=== PATIENT | female | born 1960 | race Caucasian/White ===

== ENCOUNTER 2017-02-11 13:22 | Emergency (ER) | payer MEDICARE ==
[2017-02-11 14:01] LABS: Basophils % (Auto) 0.2 % (0.0-1.8); Eosinophils % (Auto) 0.2 % (0.0-4.3); Hematocrit 39.8 % (30.3-42.9); Hemoglobin 12.8 gm/dl (10.1-14.3); Mean Corpuscular HGB Conc 32 % (30-34); Mean Corpuscular Hemoglobin 30 pg (28-32); Mean Corpuscular Volume 92 fl (79-97); Platelet Count 235 K/mm3 (140-440); Red Blood Count 4.31 M/mm3 (3.65-5.03); Red Cell Distribution Width 15.2 % (13.2-15.2); White Blood Count 11.2 K/mm3 (4.5-11.0)
[2017-02-11 14:31] LABS: Alanine Aminotransferase 14 units/L (7-56); Albumin/Globulin Ratio 1.4 %; Alkaline Phosphatase 68 units/L (35-129); Anion Gap 16 mmol/L; BUN/Creatinine Ratio 36.66; Bilirubin,Total 0.2 mg/dL (0.1-1.2); Blood Urea Nitrogen 22 mg/dL (7-17); Calcium 9.5 mg/dL (8.4-10.2); Carbon Dioxide 28 mmol/L (22-30); Glucose 116 mg/dL (65-100); Potassium 4.3 mmol/L (3.6-5.0); Sodium 142 mmol/L (137-145); Total Protein 6.9 g/dL (6.3-8.2)
[2017-02-11] MEDS ORDERED: MORPHINE IV ONE (15:45)
[2017-02-11] MEDS ORDERED: ZOFRAN IV ONE (15:45)
[2017-02-11] MEDS ORDERED: NACL 0.9% 1000 ML 1,000 ML IV ONE (15:45)
[2017-02-11] MEDS ORDERED: NACL ONE (15:52)
--- NOTE | 2017-02-11 15:53 | Emergency Department Report ---
HPI - General Chief Complaint: Nausea/Vomiting/Diarrhea Time Seen by Provider: 02/11/17 15:32 - HPI HPI: Room 26 The patient is a 56-year-old female presenting with a chief complaint of nausea vomiting and diarrhea. Patient is currently at [facility] for suicidal ideation but was sent to the emergency department after becoming diaphoretic and exhibiting nausea vomiting and diarrhea. The patient denies abdominal pain but points to her left lower quadrant states there is pain. Patient states they began to feel sick and felt hot became diaphoretic and started vomiting. Patient states he then had 2 episodes of loose stools. When asked how she is feeling currently a patient replies she feels "all right." Location: [see above] Duration: [see above] Quality: Nausea Severity: Moderate Modifying factors: [see above] Context: [see above] Mode of transportation: [not driving] ED Past Medical Hx - Past Medical History Previous Medical History?: Yes Hx GERD: Yes Hx of Cancer: Yes (breast. s/p lumpectomy and xrt) Hx Psychiatric Treatment: Yes (bipolar, SI without plan) - Surgical History Additional Surgical History: partial colectomy secondary to diverticulitis 2010 - Family History Family history: no significant - Social History Smoking Status: Current Every Day Smoker (1/2 pack per day) Substance Use Type: Alcohol - Medications Home Medications: Home Medications Medication Instructions Recorded Confirmed Last Taken Type Baclofen 20 mg PO QID 02/11/17 02/11/17 02/10/17 History Dextroamphetamine/Amphetamine 30 mg PO BID 02/11/17 02/11/17 02/10/17 History [Adderall] Effexor Xr 150 mg PO DAILY 02/11/17 02/11/17 02/10/17 History Gabapentin [Neurontin] 300 mg PO TID 02/11/17 02/11/17 02/10/17 History Ibuprofen [Motrin 600 MG tab] 600 mg PO Q6HR PRN MDD 4 02/11/17 02/11/17 History LORazepam [Ativan] 0.5 mg PO Q6HR PRN MDD 4 02/11/17 02/11/17 Unknown History Ondansetron [Zofran TAB] 8 mg PO Q8HR PRN #20 tablet 02/11/17 Unknown Rx Quetiapine Fumarate [SEROquel] 50 mg PO HS 02/11/17 02/11/17 02/10/17 History Suboxone 2 mg-0.5 mg Sl Film 2 mg SL Q6HR PRN MDD 4 02/11/17 02/11/17 02/10/17 History traZODone [Desyrel] 50 mg PO HS 02/11/17 02/11/17 02/10/17 History ED Review of Systems ROS: Stated complaint: N/V Other details as noted in HPI Comment: All other systems reviewed and negative Constitutional: diaphoresis. denies: chills, fever Eyes: denies: eye pain, eye discharge, vision change ENT: denies: ear pain, throat pain Respiratory: denies: cough, shortness of breath, wheezing Cardiovascular: denies: chest pain, palpitations Endocrine: no symptoms reported Gastrointestinal: abdominal pain, nausea, vomiting, diarrhea Genitourinary: denies: urgency, dysuria, discharge Musculoskeletal: denies: back pain, joint swelling, arthralgia Skin: denies: rash, lesions Neurological: denies: headache, weakness, paresthesias Psychiatric: denies: anxiety, depression Hematological/Lymphatic: denies: easy bleeding, easy bruising Physical Exam - Physical Exam Vital Signs: Vital Signs 02/11/17 02/11/17 13:47 13:48 Temperature 97.9 F Pulse Rate 92 H Respiratory 18 17 Rate Blood Pressure 108/73 [Right] O2 Sat by Pulse 93 Oximetry Physical Exam: GENERAL: The patient is well-developed well-nourished female lying on stretcher not appearing to be in acute distress. [] HEENT: Normocephalic. Atraumatic. Extraocular motions are intact. Patient has moist mucous membranes. NECK: Supple. Trachea midline CHEST/LUNGS: Clear to auscultation. There is no respiratory distress noted. HEART/CARDIOVASCULAR: Regular. There is tachycardia. There is no gallop rub or murmur. ABDOMEN: Abdomen is soft, nontender but the patient complains of pain in the left lower quadrant. Patient has normal bowel sounds. There is no abdominal distention. SKIN: There is no rash. There is no edema. There is no diaphoresis. NEURO: The patient is awake, alert, and oriented. The patient is cooperative. The patient has normal speech MUSCULOSKELETAL: There is no evidence of acute injury. ED Course Vital Signs 02/11/17 02/11/17 13:47 13:48 Temperature 97.9 F Pulse Rate 92 H Respiratory 18 17 Rate Blood Pressure 108/73 [Right] O2 Sat by Pulse 93 Oximetry ED Medical Decision Making - Lab Data Result diagrams: 02/11/17 13:44 02/11/17 13:44 Laboratory Tests 02/11/17 02/11/17 02/11/17 13:44 13:44 15:48 WBC 11.2 H RBC 4.31 Hgb 12.8 Hct 39.8 MCV 92 MCH 30 MCHC 32 RDW 15.2 Plt Count 235 Lymph % (Auto) 5.2 L [place] % (Auto) 6.1 Eos % (Auto) 0.2 Baso % (Auto) 0.2 Lymph # 0.6 L [place] # 0.7 Eos # 0.0 Baso # 0.0 Seg Neutrophils % 88.3 H Seg Neutrophils # 9.8 H Sodium 142 Potassium 4.3 Chloride 102.0 Carbon Dioxide 28 Anion Gap 16 BUN 22 H Creatinine 0.6 L Estimated GFR > 60 BUN/Creatinine Ratio 36.66 Glucose 116 H Calcium 9.5 Total Bilirubin 0.2 AST 27 ALT 14 Alkaline Phosphatase 68 Total Creatine Kinase 421 H CK-MB (CK-2) 5.9 H CK-MB (CK-2) Rel Index 1.4 Troponin T Total Protein 6.9 Albumin 4.0 Albumin/Globulin Ratio 1.4 Amylase 27 Lipase Urine Color Urine Turbidity Urine pH Ur Specific [place] Urine Protein Urine Glucose (UA) Urine Ketones Urine Blood Urine Nitrite Urine Bilirubin Urine Urobilinogen Ur Leukocyte Esterase Urine WBC (Auto) Urine RBC (Auto) U Epithel Cells (Auto) Urine Mucus 02/11/17 02/11/17 15:49 17:38 WBC RBC Hgb Hct MCV MCH MCHC RDW Plt Count Lymph % (Auto) [place] % (Auto) Eos % (Auto) Baso % (Auto) Lymph # [place] # Eos # Baso # Seg Neutrophils % Seg Neutrophils # Sodium Potassium Chloride Carbon Dioxide Anion Gap BUN Creatinine Estimated GFR BUN/Creatinine Ratio Glucose Calcium Total Bilirubin AST ALT Alkaline Phosphatase Total Creatine Kinase CK-MB (CK-2) CK-MB (CK-2) Rel Index Troponin T < 0.010 Total Protein Albumin Albumin/Globulin Ratio Amylase Lipase 29 Urine Color Yellow Urine Turbidity Clear Urine pH 5.0 Ur Specific [place] 1.041 H Urine Protein 100 mg/dl Urine Glucose (UA) Neg Urine Ketones Neg Urine Blood Neg Urine Nitrite Neg Urine Bilirubin Neg Urine Urobilinogen < 2.0 Ur Leukocyte Esterase Neg Urine WBC (Auto) 1.0 Urine RBC (Auto) 5.0 U Epithel Cells (Auto) < 1.0 Urine Mucus Few - EKG Data -: EKG Interpreted by Me EKG shows normal: sinus rhythm Rate: normal - EKG Data When compared to previous EKG there are: previous EKG unavailable Interpretation: other (no ischemic changes seen) - Radiology Data Radiology results: report reviewed (CT abdomen and pelvis), image reviewed (CT abdomen and pelvis) CT abdomen and pelvis (read by radiologist)-no acute intra-abdominal process noted. Hypodense foci in the liver and left kidney. Likely cyst but too small to characterize. Mild atrophy of the left kidney. Small and short infrarenal abdominal aortic aneurysm measuring up to 2.6 cm in diameter - Differential Diagnosis gastroenteritis, ACS, GERD, diverticulitis Critical care attestation.: If time is entered above; I have spent that time in minutes in the direct care of this critically ill patient, excluding procedure time. ED Disposition Clinical Impression: Gastroenteritis Disposition: DC/TX PSY HOSP/PSY UNIT Is pt being admited?: No Does the pt Need Aspirin: No Condition: Stable Instructions: Acute Nausea and Vomiting (ED) Additional Instructions: Return to the emergency department immediately should you develop worsening symptoms, fever, inability to tolerate food or liquid or any other concerns. Prescriptions: Ondansetron [Zofran TAB] 8 mg PO Q8HR PRN #20 tablet PRN Reason: Nausea Referrals: PRIMARY CARE, [Primary Care Provider] - 3-5 Days Time of Disposition: 18:34
[2017-02-11 16:17] LABS: Lipase 29 units/L (13-60)
[2017-02-11 16:20] LABS: Creatine Kinase MB 5.9 ng/mL (0.0-4.0)
[2017-02-11 17:58] LABS: Bilirubin,Urine NEG (Negative); Blood,Urine NEG (Negative); Ketones,Urine NEG (Negative); Leukocyte Esterase,Urine NEG (Negative); Mucus,Urine FEW /HPF; Nitrite,Urine NEG (Negative); Urobilinogen,Urine < 2.0 mg/dL (<2.0)
--- NOTE | 2017-02-11 18:08 | Cat Scan Report ---
FINAL REPORT EXAM: CT ABDOMEN PELVIS W CON HISTORY: left lower quadrant abdominal pain TECHNIQUE: Standard enhanced CT of the abdomen and pelvis. Delayed imaging through the kidneys and bladder was obtained. Coronal and sagittal reconstruction was also performed. Contrast: 100 mL Omnipaque 300 given IV. PRIORS: None. FINDINGS: Within the abdomen, the liver demonstrates several small rounded hypodense foci in each lobe, too small to characterize, but statistically likely cysts. The largest is in the inferior right lobe near the gallbladder fossa measuring 6 mm. There are also several tiny hypodensities the left kidney, likely tiny cysts, but too small to characterize. The cortex of the left kidney is thinner than the right suggesting mild atrophy. The spleen, pancreas, gallbladder, and adrenal glands are unremarkable. No evidence for retroperitoneal or pelvic lymphadenopathy is seen. The bowel loops have normal caliber. No soft tissue mass, fluid collection, inflammatory change, or free air is seen within the abdomen or pelvis. The appendix is normal. There is mild fusiform aneurysmal dilatation of the infrarenal abdominal aorta measuring up to 2.6 x 2.1 cm in maximum diameter. Low-density thrombus is laminated along the wall of aneurysmal portion. This segment measures 2.3 cm in craniocaudal length. Heavy calcification of the aortic wall is noted throughout. Within the pelvis, the bladder is unremarkable. The uterus is normal. No evidence for mass or lymphadenopathy is seen in the pelvis. Images through the upper abdomen include the lung bases which are expanded and clear. There is heavily calcified 5 mm granuloma in the left base medially. Bony structures show no focal abnormalities and are intact. There is bilateral facet joint hypertrophic degenerative changes at L4-L5 and L5-S1. IMPRESSION: 1. no acute intra-abdominal process noted. 2. Hypodense foci in the liver and left kidney, likely cysts but too small to characterize. 3. Mild cortical atrophy of the left kidney. 4. Small and short infrarenal abdominal aortic aneurysm measuring up to 2.6 cm in diameter.
[2017-02-11] MEDS ORDERED: MORPHINE ONE ×2 (18:11)
[2017-02-11 19:17] VITALS: BP 120/76
== END 2017-02-11 19:13 ==
LOC: ED 13:22
DX: K52.9 Noninfective gastroenteritis and colitis, unspecified (principal); K21.9 Gastro-esophageal reflux disease without esophagitis; F31.9 Bipolar disorder, unspecified; F17.200 Nicotine dependence, unspecified, uncomplicated; Z90.89 Acquired absence of other organs; Z85.3 Personal history of malignant neoplasm of breast
CPT/HCPCS: 36415; 74177; 80053; 81001; 82150; 82550; 82553; 83690; 84484; 85025; 93005; 93010; 96361; 96374; 96375; 99284; J2270; J2405; J7030; Q9967

== ENCOUNTER 2017-02-12 20:06 | Emergency (ER) | payer MEDICARE ==
[2017-02-12] MEDS ORDERED: DUONEB 0.5 MG-3 MG/3 ML SOLN IH ONE (20:37)
--- NOTE | 2017-02-12 20:40 | Emergency Department Report ---
HPI - General Time Seen by Provider: 02/12/17 20:28 - HPI HPI: This is a 56-year-old female who presents to the emergency department by EMS from [facility] with the need for a medical evaluation for possible hypoxia. Allegedly the patient was eating dinner and became upset and this prompted them to check her oxygen level and found it to be low so she was sent in for further evaluation. The patient denies any shortness of breath, chest pain, back pain or any current physical complaints at this time. She has a history of COPD but is not oxygen dependent. She is a tobacco smoker. She has not taken and was not given anything for symptoms prior to presentation. The patient is currently at [facility] for suicidal ideations. Her primary care doctor is a Dr. yoon. I spoke with one of the nurses at [facility] who says that the patient was originally sent in yesterday because of some alteration in her mental status that comes and goes. She also says that there was allegedly a syncopal episode today at dinner and that is what prompted them to check her oxygen level which was in the 40s. ED Past Medical Hx - Past Medical History Hx GERD: Yes Hx Psychiatric Treatment: Yes (bipolar, SI without plan) - Surgical History Additional Surgical History: partial colectomy secondary to diverticulitis 2010 - Social History Smoking Status: Current Every Day Smoker (1/2 pack per day) Substance Use Type: Alcohol - Medications Home Medications: Home Medications Medication Instructions Recorded Confirmed Last Taken Type Baclofen 20 mg PO QID 02/11/17 02/11/17 02/10/17 History Dextroamphetamine/Amphetamine 30 mg PO BID 02/11/17 02/11/17 02/10/17 History [Adderall] Effexor Xr 150 mg PO DAILY 02/11/17 02/11/17 02/10/17 History Gabapentin [Neurontin] 300 mg PO TID 02/11/17 02/11/17 02/10/17 History Ibuprofen [Motrin 600 MG tab] 600 mg PO Q6HR PRN MDD 4 02/11/17 02/11/17 History LORazepam [Ativan] 0.5 mg PO Q6HR PRN MDD 4 02/11/17 02/11/17 Unknown History Ondansetron [Zofran TAB] 8 mg PO Q8HR PRN #20 tablet 02/11/17 Unknown Rx Quetiapine Fumarate [SEROquel] 50 mg PO HS 02/11/17 02/11/17 02/10/17 History Suboxone 2 mg-0.5 mg Sl Film 2 mg SL Q6HR PRN MDD 4 02/11/17 02/11/17 02/10/17 History traZODone [Desyrel] 50 mg PO HS 02/11/17 02/11/17 02/10/17 History ALBUTEROL Inhaler [ProAir HFA 2 puff IH QID PRN #1 inhalation 02/13/17 Unknown Rx Inhaler] ED Review of Systems ROS: Stated complaint: SALLY Other details as noted in HPI Comment: All other systems reviewed and negative Constitutional: denies: chills, fever Eyes: denies: eye pain, eye discharge, vision change ENT: denies: ear pain, throat pain Respiratory: denies: cough, shortness of breath, wheezing Cardiovascular: denies: chest pain, palpitations Gastrointestinal: denies: abdominal pain, nausea, diarrhea Genitourinary: denies: urgency, dysuria, discharge Musculoskeletal: denies: back pain, joint swelling, arthralgia Skin: denies: rash, lesions Neurological: denies: headache, weakness, paresthesias Physical Exam - Physical Exam Physical Exam: GENERAL: The patient is well-developed well-nourished. HEENT: Normocephalic. Atraumatic. Extraocular motions are intact. Patient has moist mucous membranes. Pupils equal reactive to light bilaterally. NECK: Supple. Trachea is midline. CHEST/LUNGS: Clear to auscultation. There is no respiratory distress noted. No tachypnea or accessory muscle use. HEART/CARDIOVASCULAR: Regular. There is no tachycardia. There is no gallop rub or murmur. ABDOMEN: Abdomen is soft, nontender. Patient has normal bowel sounds. There is no abdominal distention. SKIN: Skin is warm and dry. NEURO: The patient is awake, alert, and oriented. The patient is cooperative. The patient has no focal neurologic deficits. The patient has normal speech. Cranial nerves II through XII grossly intact. MUSCULOSKELETAL: There is no tenderness or deformity. There is no limitation range of motion. There is no evidence of acute injury. ED Medical Decision Making - Lab Data Result diagrams: 02/12/17 21:15 02/12/17 21:15 - EKG Data -: EKG Interpreted by Me EKG shows normal: sinus rhythm, axis, intervals, QRS complexes, ST-T waves Rate: normal - EKG Data When compared to previous EKG there are: no significant change Interpretation: normal EKG, unchanged when compared t (02/11/17) - Radiology Data Radiology results: report reviewed, image reviewed interpreted by me: Chest x-ray did not show any acute process. Heart is normal shape and size. No effusions. No pneumothorax. No signs of pneumonia seen. CT of the head does not show any acute process including no hemorrhage, mass, shift, diffuse edema or skull fracture. CT angiography of the chest does not show any evidence of pulmonary emboli. - Medical Decision Making This is a 56-year-old female presents to the emergency department from [facility] with the complaint of a possible syncopal episode and some hypoxia. The patient has been awake and alert and in no acute distress and she has been in the emergency department. Patient's vital signs are stable throughout her ED course. It is been rechecked multiple times and there has been no signs of hypoxia. There is been no signs of respiratory distress. Patient's labs and an unremarkable other than a slightly elevated d-dimer. Because of this a CT angiography of the chest was done that does not show any pulmonary and was a minor any other acute process. Patient's labs did not show any signs of infection in the bladder urine, electrolyte abnormalities, renal insufficiency, glucose abnormalities and she has normal belly labs. Patient was evaluated yesterday for her abdomen and was diagnosed with gastroenteritis. EKG today did not show any signs of ST elevation [place], ischemia or dysrhythmia. CT of the head did not show any bleed, shift, mass or any acute process. While the etiology of the patient's alleged syncopal and hypoxia is still unknown, there has been no further episodes of any altered mental status in the emergency department and has been no hypoxia. Patient appears safe for discharge home at this time but is encouraged to follow-up with her primary care doctor when she has done at a hospital and for the patient to be return to the emergency department if there is any recurrence of altered mental status, any further sustained hypoxia or any acute distress. - Differential Diagnosis COPD, PE, TIA, asthma Critical Care Time: No Critical care attestation.: If time is entered above; I have spent that time in minutes in the direct care of this critically ill patient, excluding procedure time. ED Disposition Clinical Impression: COPD (chronic obstructive pulmonary disease) Qualifiers: COPD type: unspecified COPD Qualified Code(s): J44.9 - Chronic obstructive pulmonary disease, unspecified Syncope Qualifiers: Syncope type: unspecified Qualified Code(s): R55 - Syncope and collapse Disposition: DISCHARGED TO HOME OR SELFCARE Is pt being admited?: No Condition: Stable Instructions: Syncope (ED), Chronic Obstructive Pulmonary Disease (ED) Additional Instructions: Please follow-up with a primary care doctor once you're able to do so. Return to the emergency department with any acute distress. Prescriptions: ALBUTEROL Inhaler [ProAir HFA Inhaler] 2 puff IH QID PRN #1 inhalation PRN Reason: Shortness Of Breath Referrals: PRIMARY CARE, [Primary Care Provider] - 3-5 Days Time of Disposition: 00:43
[2017-02-12 21:46] LABS: Alanine Aminotransferase 24 units/L (7-56); Albumin 3.7 g/dL (3.9-5); Albumin/Globulin Ratio 1.3 %; Alkaline Phosphatase 63 units/L (35-129); Anion Gap 15 mmol/L; Bilirubin,Total < 0.2 mg/dL (0.1-1.2); Blood Urea Nitrogen 18 mg/dL (7-17); Calcium 8.7 mg/dL (8.4-10.2); Carbon Dioxide 30 mmol/L (22-30); Chloride 98.6 mmol/L (98-107); Glucose 134 mg/dL (65-100); Sodium 140 mmol/L (137-145); Total Protein 6.5 g/dL (6.3-8.2)
[2017-02-12 21:47] LABS: Basophils % (Auto) 0.4 % (0.0-1.8); Eosinophils % (Auto) 3.5 % (0.0-4.3); Hematocrit 35.3 % (30.3-42.9); Hemoglobin 11.5 gm/dl (10.1-14.3); Mean Corpuscular HGB Conc 33 % (30-34); Mean Corpuscular Hemoglobin 30 pg (28-32); Mean Corpuscular Volume 91 fl (79-97); Platelet Count 210 K/mm3 (140-440); Red Cell Distribution Width 14.9 % (13.2-15.2); White Blood Count 5.1 K/mm3 (4.5-11.0)
[2017-02-12] MEDS ORDERED: NACL ONE (21:58)
--- NOTE | 2017-02-12 22:58 | Cat Scan Report ---
FINAL REPORT PROCEDURE: CT HEAD/BRAIN WO CON TECHNIQUE: Computerized tomography of the head was performed without contrast material. HISTORY: Syncope COMPARISON: No prior studies are available for comparison. FINDINGS: No CT evidence of intracranial mass, hemorrhage, acute territorial infarction, or hydrocephalus. The intracranial arteries are symmetric in density. Calvarium is intact. Visualized paranasal sinuses and mastoids are aerated. IMPRESSION: No CT evidence of acute abnormality
--- NOTE | 2017-02-12 23:11 | Cat Scan Report ---
FINAL REPORT PROCEDURE: CT ANGIO CHEST TECHNIQUE: Computerized tomographic angiography of the chest was performed after the IV injection of iodinated nonionic contrast including image processing. The image data was postprocessed using 2-dimensional multiplanar reformatted (MPR) and 3-dimensional (MIP and/or volume rendered) techniques. HISTORY: SOB, elevated dimer COMPARISON: No prior studies are available for comparison. FINDINGS: Heart and pericardium: No pericardial effusion or thickening is seen. Thoracic aorta: No evidence of aneurysm or dissection. Pulmonary vasculature: Normal. Lymph nodes: 7 millimeter right hilar lymph node is noted. Lungs: Calcified 4 millimeter nodule in the medial left lung base. Mild COPD changes.. Pleural space: No effusion, thickening, or pneumothorax. Musculoskeletal structures: Thoracic spine degenerative disc changes Upper abdominal structures: The common bile duct may be dilated, but is not fully imaged. IMPRESSION: No evidence of pulmonary emboli Common bile duct appears prominent in caliber but is not fully imaged. Further evaluation could be obtained as clinically warranted.
[2017-02-13 00:13] VITALS: BP 139/79
[2017-02-13 00:35] LABS: Bilirubin,Urine NEG (Negative); Blood,Urine NEG (Negative); Ketones,Urine NEG (Negative); Leukocyte Esterase,Urine SM (Negative); Nitrite,Urine NEG (Negative); Protein,Urine <15 mg/dL mg/dL (Negative); Urobilinogen,Urine < 2.0 mg/dL (<2.0)
--- NOTE | 2017-02-13 09:04 | XRay Report ---
Portable chest: Shortness of breath. The lungs are hyperinflated but clear of any infiltrate or nodule. The heart is normal in size. There is no vascular congestion. No prior exam for comparison. Impression: Hyperinflation.
== END 2017-02-13 04:33 | disposition home or self-care (01) ==
LOC: ED 20:06
DX: J44.9 Chronic obstructive pulmonary disease, unspecified (principal); R55 Syncope and collapse; K21.9 Gastro-esophageal reflux disease without esophagitis; F31.9 Bipolar disorder, unspecified; F17.210 Nicotine dependence, cigarettes, uncomplicated
CPT/HCPCS: 36415; 70450; 71010; 71275; 80053; 81001; 83880; 84484; 85025; 85379; 93005; 93010; 99284; Q9967